=== PATIENT | male | born 1960 | race Caucasian/White ===

== ENCOUNTER 2021-01-28 10:11 | Outpatient (REF) | payer OTHER, SELFPAY ==
[2021-01-28 12:00] LABS: Blood Urea Nitrogen 28 mg/dL (9-16); Estimated Glomerular Filt Rate 42
== END 2021-01-28 10:12 | disposition home or self-care (01) ==
LOC: HO.LAB 10:11
PROVIDERS: Visit Provider Otolaryngology
DX: M87.9 Osteonecrosis, unspecified (principal); C09.9 Malignant neoplasm of tonsil, unspecified
CPT/HCPCS: 36415; 82565; 84520

== ENCOUNTER 2021-01-29 08:54 | Outpatient (REF) | payer OTHER, SELFPAY ==
--- NOTE | ~2021-01-29 | CT_ITS ---
EXAMINATION: CT CHEST WITH CONTRAST CLINICAL INFORMATION: Right tonsillar cancer, osteonecrosis of the mandible. COMPARISON: Chest CT dated 02/19/2018 TECHNIQUE: Multidetector volumetric CT imaging of the chest was obtained after the administration of 50 mL of Omnipaque 350 intravenous contrast without immediate adverse reactions. Axial MIP volume rendering provided. Sagittal and coronal reformatted images were obtained. This CT examination was performed using dose optimization techniques as appropriate, variously including the following: *Automated exposure control *Adjustment of mA and/or kV according to patient size (this includes techniques or standardized protocols for targeted exams where dose is matched to indication/reason for exam; i.e. extremities or head) *Use of iterative reconstruction technique DLP: 308 mGy-cm FINDINGS: LUNGS/PLEURA/AIRWAYS: Diffuse patchy infiltrates with groundglass opacities are seen most pronounced in the right middle and lower lobes, but are also seen to a lesser extent in the upper lobes bilaterally, left greater than right as well as in the left lower lobe. Increased pleural thickening and atelectasis is seen posteriorly in the right lower lobe. Mild linear atelectasis versus scarring is seen in the right middle lobe, lingula and lung bases. The airways are patent. MEDIASTINUM: The visualized thyroid gland is unremarkable. The anterior mediastinum is unremarkable. The thoracic aorta demonstrates normal course and caliber. Mild coronary artery calcifications are seen. There is no pericardial effusion. AXILLA: No lymphadenopathy. UPPER ABDOMEN: Small left adrenal nodule measuring 1.0 cm without definite change. Fluid attenuation left upper pole renal cyst measures 2.7 cm and maintains benign features (image 65, series 3). OSSEOUS STRUCTURES: Mild to moderate multilevel degenerative changes without significant change. No suspicious abnormality. CT/CT chest w con IMPRESSION: Diffuse bilateral patchy infiltrates and groundglass opacities most pronounced in the middle and lower lobes represents interval worsening the previous study. Significant increased atelectasis is seen in the right lower lobe as well with mild adjacent pleural thickening. These findings are nonspecific, but suggest an infectious/inflammatory process. Chest radiographs are recommended. Short-term monitoring. A chest CT scan is recommended in 3 months to assess for change. If radiographic findings persist or worsen, a PET CT scan should also be considered given the patient's cancer history.
--- NOTE | ~2021-01-29 | CT_ITS ---
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 COMPARISON: 06/28/2019 CT TECHNIQUE: Following the intravenous administration of 100 mL of Omnipaque 350 intravenous contrast, helical imaging was performed in the axial plane with generation of coronal and sagittal reformatted images. This CT examination was performed using dose optimization techniques as appropriate, variously including the following: *Automated exposure control *Adjustment of mA and/or kV according to patient size (this includes techniques or standardized protocols for targeted exams where dose is matched to indication/reason for exam; i.e. extremities or head) *Use of iterative reconstruction technique DLP: 330.00 mGy-cm FINDINGS: Skull Base: Limited assessment of the intracranial contents is grossly unremarkable. The bony skull base appears intact. There is suboptimal enhancement within the right sigmoid sinus which is unchanged from previous exam and may be sequela of previous right radical neck dissection. The mastoids and middle ear cavities are unopacified. There is a small osteoma within the right external auditory canal, unchanged in appearance. There are exostoses of the left tympanic annulus, stable in appearance. There is minimal mucosal thickening in the maxillary sinuses bilaterally, unchanged. Nasal septal deviation to the left noted. Suprahyoid Neck: The nasopharynx, undertaker helper and parapharyngeal spaces appear within normal limits. Redemonstrated is evidence of a previous right mandibulectomy with metallic hardware including a curved plate and screws traversing a defect in the mandible. No evidence for hardware fracture or loosening. Previously noted transverse fracture of the right mandibular ramus has healed. There is a prominent mandibular torus arising along the lingual cortex of the mandible on the left which is unchanged. There are sclerotic changes in the right mandibular ramus progressed from previous exam. Since the previous study, the patient has undergone a flap reconstruction, which extends from the level of the body of the mandible on the right inferiorly down to the base of the neck, to the right supraclavicular region. There is some streaky soft tissue densities at the superior aspect of the flap reconstruction some of which are seen on the previous exam likely reflecting postsurgical and posttreatment changes. The right parotid gland is markedly atrophic, unchanged. The left parotid gland appears normal. There is extensive dental amalgam artifact partially obscuring the tongue and oral cavity. Within these limitations, the base of the tongue and floor of the mouth structures are unchanged in appearance. There is some streaky soft tissue density at the right lateral aspect of the floor of the mouth, likely postsurgical on current study. The right submandibular gland is not clearly visualized, and there appear to be surgical clips in this region. The left submandibular gland appears atrophic. No lymphadenopathy identified. Loss of tissue planes in the right submandibular space and right carotid space is likely posttreatment change. Infrahyoid Neck: There is thickening of the epiglottis, similar to previous exam, consistent with posttreatment change. There are retained secretions in the hypopharynx. The larynx appears otherwise unremarkable. Thyroid gland is diminutive. No infrahyoid lymphadenopathy. There is soft tissue thickening surrounding the right common carotid artery, unchanged in appearance. There are atheromatous vascular calcifications at both carotid bulbs, similar to the previous exam, consistent with significant carotid plaque bilaterally. Suggest correlation for any bruits. There are artifacts at the level of the base of the neck and upper chest related to the shoulders. Upper Chest: See accompanying CT of the chest. Patchy ground-glass infiltrates in the left upper lobe are noted and, to a lesser degree, the right upper lobe. Multiple mediastinal lymph nodes are noted, with the largest of these measuring 6 mm in greatest short axis in the right precarinal region. Skeletal: Extensive multilevel cervical DDD and spondylosis throughout the cervical spine is stable. No focally aggressive osseous lesions are identified. Mild left-sided TMJ arthrosis is stable. Other Comments: None. CT/CT soft tissue neck w con IMPRESSION: 1. Postoperative changes on the right, as described above, and posttreatment changes. No cervical lymphadenopathy identified. Previously noted right mandibular fracture has healed. 2. Status post flap reconstruction on the right since the previous exam. Previously noted right-sided retromandibular ulceration is no longer visualized. 3. Extensive atheromatous plaque at both carotid bulbs, similar to previous exam. 4. Thoracic findings, as discussed above, and as noted on accompanying CT of the chest. 5. Followup as per clinical indications.
[2021-01-29] MEDS: iohexoL 350 MG/ML 100 ML INFUS..BTL 80 ML IV (09:50)
== END 2021-01-29 08:55 | disposition home or self-care (01) ==
LOC: HO.CT 08:54
PROVIDERS: Visit Provider Otolaryngology
DX: C09.9 Malignant neoplasm of tonsil, unspecified (principal); M87.9 Osteonecrosis, unspecified
CPT/HCPCS: 70491; 71260; Q9967

== ENCOUNTER 2022-12-03 07:49 | Outpatient (REF) | payer OTHER, SELFPAY ==
--- NOTE | ~2022-12-03 | CT_ITS ---
EXAMINATION: CT SOFT TISSUE NECK WITH CONTRAST CLINICAL INFORMATION: Cricopharyngeal squamous cell carcinoma. COMPARISON: CT neck from 01/29/2021. TECHNIQUE: Multidetector helical imaging was performed in the axial plane following the administration of 60 mL of Omnipaque 350 intravenous contrast. Multiple axial reformats and coronal/sagittal reconstructions were created the technologist workstation for review. This CT examination was performed using dose optimization techniques as appropriate, variously including the following: *Automated exposure control. *Adjustment of mA and/or kV according to patient size (this includes techniques or standardized protocols for targeted exams where dose is matched to indication/reason for exam; i.e. extremities or head). *Use of iterative reconstruction technique. DLP: 341 mGy-cm FINDINGS: Changes of right-sided neck dissection with tissue flap reconstruction. The right-sided parotid/submandibular glands and right-sided internal jugular vein are absent. Changes of partial right hemimandibulectomy with plate and screw reconstruction. The screws associated with the posterior aspect of the plate are located within soft tissue structures posterior to the mandibular condyle (similar to prior exam). There remains mild lucency surrounding the screws within the right parasymphyseal region of the mandible (similar to prior exam). A nonunited fracture through the right-sided angle of the mandible is new compared to exam from 2020. 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 There remains moderate smooth mucosal thickening/edema throughout the pharyngeal and laryngeal structures consistent with postradiation changes. No demonstrated new mass lesions, irregular nodularity, or abnormal enhancement along the mucosal margins of the pharynx/larynx. No demonstrated new focal lesion or abnormal enhancement within the intrinsic tissues of the tongue or floor of mouth. No discrete fluid collection within the deep tissues of the neck. The premaxillary, retromaxillary, pterygopalatine fossa, orbital apical, parapharyngeal, and prelaryngeal adipose tissue is maintained. Normal appearance of the left parotid gland. The left submandibular gland is atrophic. Mild atrophic change of the thyroid gland. Scattered subcentimeter lymph nodes within the left-sided neck, none of which are pathologically enlarged or abnormally enhancing. Normal appearance of the hyoid bone, thyroid cartilage, or cartilaginous trachea. The airways remains widely patent. No radiopaque foreign bodies. The atlantooccipital and atlantoaxial articulations remain well aligned. There is anatomic alignment of the vertebral bodies and posterior elements. No evidence of acute fracture or subluxation of the cervical spine. The vertebral body heights are maintained. Mild reversal the normal cervical lordosis. Advanced degenerative disc disease at C5-C6 and C6-C7. Moderate degenerative disc disease at all additional levels. There appears to be at least mild spinal canal stenosis at C3-C4, C5-C6, and C6-C7. Facet and uncovertebral joint arthropathy leads to osseous encroachment on the neural foramina from C3-C7. No evidence of epidural collection. There is no prevertebral soft tissue swelling. Normal opacification of the cervical arterial and venous structures. The visualized portion of the skull base is without significant abnormalities. Moderate mucosal thickening of the maxillary sinuses. Mild leftward nasal septal deviation with spurring. The mastoid air cells and middle ear cavities are clear. Multifocal odontogenic periapical lucencies. Mild degenerative arthropathy of the left temporomandibular joint. CT Upper Chest: The patchy airspace opacities there previously demonstrated in the left upper lobe have resolved. Few patchy groundglass opacities throughout the posterior aspect of the right upper lobe. Otherwise, the visualized lung apices and upper mediastinum are within normal limits. CT/CT soft tissue neck w IV con IMPRESSION: 1. Changes of right-sided neck dissection with tissue flap reconstruction. Changes of partial right hemimandibulectomy with plate and screw reconstruction. The screws associated with the posterior aspect of the plate are located within soft tissue structures posterior to the mandibular condyle (unchanged). Mild lucency surrounding the screws within the right parasymphyseal region of the mandible (unchanged). A nonunited fracture through the right ankle the mandible is new compared to prior exam. A nonunited fracture of the right coronoid process of the mandible is unchanged. 2. No demonstrated new mass lesions, irregular nodularity, or abnormal enhancement along the mucosal margins of the pharynx/larynx. 3. No cervical lymphadenopathy. 4. The patchy airspace opacities there previously demonstrated in the left upper lobe have resolved. Few patchy groundglass opacities throughout the posterior aspect of the right upper lobe may suggestive of an infectious/inflammatory process. 5. Advanced multilevel degenerative spondyloarthropathy of the cervical spine.
[2022-12-03] MEDS: iohexoL 350 MG/ML 100 ML INFUS..BTL IV (08:29)
[2022-12-04 09:07] LABS: Creatinine POC 0.8 mg/dL (0.5-1.4); GFR POC 60
== END 2022-12-03 07:50 | disposition home or self-care (01) ==
LOC: HO.CT 07:49
PROVIDERS: PCP Internal Medicine; Visit Provider Otolaryngology
DX: M27.2 Inflammatory conditions of jaws (principal); Y84.2 Radiological procedure and radiotherapy as the cause of abnormal reaction of the patient, or of later complication, without mention of misadventure at the time of the procedure
CPT/HCPCS: 70491; 82565; Q9967

== ENCOUNTER 2024-06-23 07:42 | Outpatient (REF) | payer OTHER, SELFPAY ==
--- NOTE | ~2024-06-23 | CT_ITS ---
CLINICAL HISTORY: POST SURGICAL SURVEILLANCE,OSTEONECROSIS CT SOFT TISSUE NECK WITH CONTRAST Comparison: CT/REG/SR - CT SOFT TISSUE NECK W IV CON - 12/03/22 08:14 EDT Findings: No enhancing intracranial mass lesion where visualized. Pharyngeal mucosal space, prevertebral tissues, and epiglottis remain diffusely prominent likely related to prior radiation. Also stable increased attenuation in the right parapharyngeal fat, likely postradiation changes. Absent right salivary glands consistent with prior resection. Stable changes of associated right-sided tissue flap reconstruction. No enhancing mass or fluid collection. Absent right mandible consistent with prior resection. Stable changes of plate and screw reconstruction. Old nonunited fractures in the angle and ramus ( specifically involving the coronoid process) of the right mandible artery redemonstrated and associated with sclerotic changes. Absent right internal jugular vein consistent with prior resection. Great vessels of the neck are otherwise grossly patent. Extensive mixed plaque formation in the proximal left ICA with [id number] stenosis. No lymphadenopathy. Left parotid gland unremarkable. Atrophic left submandibular gland. Atrophic thyroid gland. Numerous nodular airspace and ground-glass opacities are identified in the included upper lungs. Multiple nonenlarged superior mediastinal lymph nodes are not significantly changed. There are prominent secretions in the distal right side of the trachea. Advanced degenerative changes in the cervical spine with large multilevel endplate osteophytes. Stable subtle sclerotic changes in T3 with no significant vertebral body compression deformity. Old right nasal bone fracture. Nonspecific mild mucosal thickening in the bilateral maxillary and left ethmoid sinuses. Persistent partial right mastoid opacification. IMPRESSION: 1. Stable postsurgical changes of prior right-sided neck dissection with tissue flap reconstruction. No enhancing mass lesion, abnormal fluid collection or lymphadenopathy. 2. Stable postsurgical changes of prior right hemimandibulectomy with plate and screw reconstruction. Old nonunited fractures in the right mandibular angle and ramus. No new fracture or grossly destructive osseous lesion. 3. Numerous nodular airspace and ground-glass opacities in the included lungs may be inflammatory or infectious in etiology. Recommend close follow-up. Developing nodules in the setting of metastatic disease is not entirely excluded. This document has been electronically signed by: Breanne Hoyos DO on 06/23/2024 14:26:29
[2024-06-23] MEDS: iohexoL 350 MG/ML 100 ML INFUS..BTL IV (08:30)
== END 2024-06-23 07:43 | disposition home or self-care (01) ==
LOC: HO.CT 07:42
PROVIDERS: PCP Internal Medicine; Visit Provider Otolaryngology
DX: M87.38 Other secondary osteonecrosis, other site (principal); Y84.2 Radiological procedure and radiotherapy as the cause of abnormal reaction of the patient, or of later complication, without mention of misadventure at the time of the procedure; Z98.890 Other specified postprocedural states
CPT/HCPCS: 70491; Q9967

== ENCOUNTER → 2024-06-23 07:44 | Outpatient (BNV) | payer OTHER, SELFPAY | PROVIDERS: PCP Internal Medicine; Visit Provider Radiology Diagnostic Radiology | DX: M87.88 Other osteonecrosis, other site (principal) | CPT/HCPCS: 70491 ==